=== PATIENT | male | born 1960 | race Two or more races ===

== ENCOUNTER 2020-07-17 16:00 | Inpatient (IN) | payer OTHER ==
[~2020-07-17] VITALS: Ht 162.6 cm; Wt 62.1 kg
[2020-08-02] MEDS ORDERED: COZAAR50 MG PO (08:24)
[2020-08-08] MEDS ORDERED: LOSARTAN-HCTZ1 EACH (13:20)
== END 2020-08-11 15:40 | disposition home or self-care (01) | DRG 331 ==
LOC: SURH 08-08 07:00 → SURG 08-08 07:44 → O/R 08-08 07:44 → SURH 08-08 09:00 → SURG 08-08 17:45
PROVIDERS: ADMIT Colon & Rectal Surgery; ATTEND Colon & Rectal Surgery
PROC: 0DBN4ZZ Excision of Sigmoid Colon, Percutaneous Endoscopic Approach (ICD-10-PCS; 2020-08-08)
PROC: 0DTP4ZZ Resection of Rectum, Percutaneous Endoscopic Approach (ICD-10-PCS; principal; 2020-08-08 07:00)
DX: K57.30 Diverticulosis of large intestine without perforation or abscess without bleeding (principal); I11.9 Hypertensive heart disease without heart failure; D64.89 Other specified anemias

== ENCOUNTER 2021-09-19 12:32 | Day surgery (SDC) | payer OTHER ==
[~2021-09-19 12:32] MED LIST: COZAAR50 MG PO; LOSARTAN-HCTZ1 EACH
== END 2021-09-19 16:40 | disposition home or self-care (01) ==
LOC: AMB-ENDOS 12:32
PROVIDERS: ATTEND Colon & Rectal Surgery
DX: K57.32 Diverticulitis of large intestine without perforation or abscess without bleeding (principal); K64.1 Second degree hemorrhoids